=== PATIENT | female | born 1935 | race Caucasian/White ===

== ENCOUNTER 2016-10-04 14:46 | Emergency (ER) | payer MEDICAID ==
[~2016-10-04] VITALS: Ht 152.4 cm; Wt 48.8 kg
[2016-10-04 17:59] VITALS: BP 180/73
== END 2016-10-04 18:16 | disposition home or self-care (01) ==
LOC: ED 14:46
DX: J02.9 Acute pharyngitis, unspecified (principal); I10 Essential (primary) hypertension
CPT/HCPCS: J0696; J1100

== ENCOUNTER 2017-01-23 09:24 | Emergency (ER) | payer MEDICAID ==
[2017-01-23 09:46] VITALS: BP 153/66
== END 2017-01-23 11:52 | disposition home or self-care (01) ==
LOC: ED 09:24
DX: M54.42 Lumbago with sciatica, left side (principal); I10 Essential (primary) hypertension; E78.00 Pure hypercholesterolemia, unspecified
CPT/HCPCS: J1885

== ENCOUNTER 2017-02-28 18:03 | Emergency (ER) | payer MEDICAID ==
[2017-02-28 18:17] VITALS: BP 184/68
== END 2017-02-28 20:11 | disposition home or self-care (01) ==
LOC: ED 18:03
DX: M54.42 Lumbago with sciatica, left side (principal); M19.90 Unspecified osteoarthritis, unspecified site; I10 Essential (primary) hypertension; E78.00 Pure hypercholesterolemia, unspecified; Z79.899 Other long term (current) drug therapy
CPT/HCPCS: J3010; Q0162

== ENCOUNTER 2020-05-27 01:46 | Inpatient (IN) | payer MEDICAID ==
[~2020-05-27] VITALS: Ht 157.5 cm; Wt 53.1 kg
[2020-05-27 01:57] VITALS: Ht 157.5 cm; Wt 53.1 kg
[2020-05-27 03:02] LABS: BASOPHIL % 1.6 % (0.2-1.3); PLATELET COUNT 222 x10^3mcL (179-408); RED CELL DISTRIBUTION WIDTH 13.8 % (12.3-17.7)
[2020-05-27 03:09] LABS: CALCIUM 9.8 mg/dL (8.5-10.1); CHLORIDE SERUM 104 mmol/L (98-107); CREATININE SERUM 1.3 mg/dL (0.6-1.0); GLUCOSE SERUM 102 mg/dL (74-106); POTASSIUM SERUM 3.9 mmol/L (3.5-5.1); SODIUM SERUM 139 mmol/L (136-145)
[2020-05-27 03:14] LABS: ALBUMIN 3.8 g/dL (3.4-5.0); ALKALINE PHOSPHATASE 57 U/L (46-116); ALT/SGPT 19 U/L (14-59); AST/SGOT 26 U/L (15-37); BILIRUBIN TOTAL 0.52 mg/dL (0.20-1.00); TOTAL PROTEIN, SERUM 7.8 g/dL (6.4-8.2)
[2020-05-27] MEDS ORDERED: PANTOPRAZOLE SO20 M1 PO (03:37)
[2020-05-27] MEDS ORDERED: NAMENDA XR TITR28 MG PO (03:37)
[2020-05-27] MEDS ORDERED: ASPIRIN CHILDRE81 MG PO (03:37)
[2020-05-27] MEDS ORDERED: SIMVASTATIN5 M2 PO (03:37)
[2020-05-27] MEDS ORDERED: CARVEDILOL ER40 MG (03:37)
[2020-05-27] MEDS ORDERED: ALENDRONATE SODI5 MG PO (03:38)
[2020-05-27] MEDS ORDERED: AMLODIPINE BESY1 T14 PO (03:38)
[2020-05-27] MEDS ORDERED: HYDRALAZINE HCL10 MG (03:38)
[2020-05-27] MEDS ORDERED: COZAAR25 M1 PO (03:38)
[2020-05-27 05:46] VITALS: BP 145/61
[2020-05-27 06:16] LABS: FREE T4 1.35 ng/dL (0.76-1.46); FREE THYROXINE INDEX 3.8 ug/dL (1.4-4.5); T4(THYROXINE) 12.4 ug/dL (4.7-13.3)
[2020-05-27 06:26] LABS: T3 TOTAL 1.71 ng/mL
[2020-05-27 08:30] VITALS: BP 148/60
[2020-05-27 12:22] VITALS: BP 136/69
[2020-05-27 14:43] VITALS: BP 136/69
== END 2020-05-27 16:00 | disposition home or self-care (01) | DRG 203 ==
LOC: ED 01:46 → DU 03:30 → MU 14:14
PROVIDERS: ADMIT Internal Medicine; ATTEND Internal Medicine
DX: M94.0 Chondrocostal junction syndrome [Tietze] (principal); N17.0 Acute kidney failure with tubular necrosis; E78.00 Pure hypercholesterolemia, unspecified; E78.5 Hyperlipidemia, unspecified; Z20.822 Contact with and (suspected) exposure to COVID-19; I10 Essential (primary) hypertension; Z79.899 Other long term (current) drug therapy
CPT/HCPCS: 84439; C9113; G0378; J1885; J7030; U0003